=== PATIENT | female | born 1995 | race Two or more races ===

== ENCOUNTER 2024-03-17 10:56 | Inpatient (IN) | payer MEDICAID ==
[~2024-03-17] VITALS: Ht 165.1 cm; Wt 92.6 kg
[2024-03-17 11:48] LABS: Basophils # (auto) 0 10 ^3/uL (0-0.2); Basophils % (auto) 0.7 % (0.0-2.0); Eosinophils # (auto) 0.1 10 ^3/uL (0-0.8); Eosinophils % (auto) 1.6 % (0.0-7.0); Hematocrit 38.6 % (36.0-46.0); Lymphocytes # (auto) 1.5 10 ^3/uL (0.4-5.4); Lymphocytes % (auto) 29.2 % (10.0-50.0); Mean Corpuscular Hemoglobin 29.3 pg (28.0-32.0); Mean Corpuscular Hgb Conc. 33.6 g/dL (32.0-36.0); Mean Corpuscular Volume 87.2 fL (80.0-100.0); Monocytes # (auto) 0.3 10 ^3/uL (0-1.3); Monocytes % (auto) 5.7 % (0.0-12.0); Neutrophils # (auto) 3.2 10 ^3/uL (1.6-8.6); Neutrophils % (auto) 62.8 % (37.0-80.0); Nucleated Red Blood Cells % 0.1 %; Red Blood Cells 4.43 10^6/uL (4.0-5.20); Red Cell Distribution Width 13.4 % (11.8-14.3); White Blood Cell 5.1 10^3/uL (4.4-10.8)
[2024-03-17 11:49] LABS: Urine Bacteria None Seen /hpf (None Seen)
[2024-03-17 12:08] LABS: Urine Blood Negative /uL (Negative); Urine Clarity Clear (Clear); Urine Color Light-Yellow (Yellow); Urine Mucus FEW (None Seen); Urine Protein, UAD Negative (Negative); Urine Specific Gravity 1.011 (1.001-1.035); Urine Urobilinogen Normal (Negative); Urine WBC 1 /hpf (0 - 5)
[2024-03-17 12:10] LABS: Albumin 4.4 g/dL (3.2-4.8); Alkaline Phosphatase 66 U/L (46-116); Anion Gap 10 (5-15); Aspartate Aminotransferase < 8 U/L (13-40); BUN/Creatinine Ratio 9.7 (10.0-20.0); Bilirubin, Total 0.4 mg/dL (0.2-1.0); Blood Urea Nitrogen 7 mg/dL (9-23); Calcium 9.3 mg/dL (8.5-10.1); Carbon Dioxide 21 mmol/L (20-30); Chloride 108 mmol/L (98-107); Glucose 95 mg/dL (74-106); Potassium 3.8 mmol/L (3.5-5.1); Sodium 139 mmol/L (136-145)
[2024-03-17 12:13] LABS: Alanine Aminotransferase < 9 U/L (7-40)
[2024-03-17] MEDS: SODIUM CHLORIDE 0.9% 1,000 ML IV ONE (13:30)
[2024-03-17] MEDS: KETOROLAC TROMETH 30 MG/ML 1ML VIAL IV ONE (13:30)
[2024-03-17] MEDS: METOCLOPRAMIDE HCL 5MG/ml INJ 2ml VIAL IV ONE (13:30)
[2024-03-17 14:16] LABS: Magnesium 1.9 mg/dL (1.6-2.6)
[2024-03-17] MEDS ORDERED: SUMA25TA2 PO (15:39)
[2024-03-17] MEDS ORDERED: CIPR0.3S19 (15:39)
[2024-03-17] MEDS ORDERED: ACETAMINOPHEN 325 MG TAB PO PRN (15:45)
[2024-03-17] MEDS: PANTOPRAZOLE 40 MG/10 ML VIAL INJ IV ONE (15:45)
[2024-03-17 16:27] LABS: LDL Cholesterol 66 mg/dL (< 100); Triglycerides 54 mg/dL (< 150)
[2024-03-17 16:29] LABS: Cholesterol 134 mg/dL (< 200); HDL Cholesterol 54 mg/dL (40-59)
[2024-03-17 17:08] LABS: INR 1.02 (0.9-1.15); Partial Thromboplastin Time 32.5 SEC (24.5-34.5); Prothrombin Time 10.7 sec (9.3-11.8)
[2024-03-17 20:00] VITALS: PULSE 79; RESP 17; O2SAT 99
[2024-03-17 21:00] VITALS: BP 127/84; PULSE 98; RESP 19; TEMP 97.8; O2SAT 100
[2024-03-17] MEDS: METOCLOPRAMIDE HCL 5MG/ml INJ 2ml VIAL ONE (23:10)
[2024-03-17] MEDS: cefTRIAXone 1GM/50ML D5W 50 ML IV ONE ×2 (23:27→23:44)
[2024-03-17] MEDS: ONDANSETRON HCL 4 MG/2 ML VIAL IV PRN (23:31)
[2024-03-17] MEDS: MORPHINE SULFATE INJ 2 MG/ml SYRG IV PRN (23:40)
[2024-03-17] MEDS: SODIUM CHLORIDE 0.9% 1,000 ML IV SCH (23:41)
[2024-03-17] MEDS: ONDANSETRON HCL 4 MG/2 ML VIAL ONE (23:45)
[2024-03-17] MEDS: MORPHINE SULFATE INJ 2 MG/ml SYRG ONE (23:46)
[2024-03-18] VITALS (8 sets, daily range): BP systolic 96–118; BP diastolic 62–79; PULSE 79–98; RESP 16–19; TEMP 97.4–98; O2SAT 94–99
[2024-03-18 07:25] LABS: Basophils # (auto) 0 10 ^3/uL (0-0.2); Basophils % (auto) 0.3 % (0.0-2.0); Eosinophils # (auto) 0.1 10 ^3/uL (0-0.8); Eosinophils % (auto) 1.3 % (0.0-7.0); Hematocrit 38.6 % (36.0-46.0); Lymphocytes # (auto) 1.6 10 ^3/uL (0.4-5.4); Lymphocytes % (auto) 19.6 % (10.0-50.0); Mean Corpuscular Hemoglobin 29.5 pg (28.0-32.0); Mean Corpuscular Hgb Conc. 33.7 g/dL (32.0-36.0); Mean Corpuscular Volume 87.5 fL (80.0-100.0); Monocytes # (auto) 0.5 10 ^3/uL (0-1.3); Monocytes % (auto) 5.8 % (0.0-12.0); Red Blood Cells 4.41 10^6/uL (4.0-5.20); Red Cell Distribution Width 13.4 % (11.8-14.3); White Blood Cell 8.2 10^3/uL (4.4-10.8)
[2024-03-18 07:48] LABS: Albumin 4.4 g/dL (3.2-4.8); Alkaline Phosphatase 68 U/L (46-116); Anion Gap 10 (5-15); Aspartate Aminotransferase 12 U/L (13-40); Bilirubin, Total 0.5 mg/dL (0.2-1.0); Calcium 9.3 mg/dL (8.5-10.1); Carbon Dioxide 23 mmol/L (20-30); Chloride 106 mmol/L (98-107); Glucose 69 mg/dL (74-106); Potassium 3.9 mmol/L (3.5-5.1); Sodium 139 mmol/L (136-145); Total Protein 7.3 g/dL (5.7-8.2)
[2024-03-18 07:51] LABS: Alanine Aminotransferase < 9 U/L (7-40)
[2024-03-18] MEDS: cefTRIAXone 1GM/50ML D5W 50 ML IV ONE (07:51)
[2024-03-18] MEDS: MORPHINE SULFATE INJ 2 MG/ml SYRG ONE (07:52)
[2024-03-18] MEDS: cefTRIAXone 1GM/50ML D5W 50 ML IV SCH (07:53)
[2024-03-18] MEDS: PANTOPRAZOLE 40 MG/10 ML VIAL INJ IV SCH (07:54)
[2024-03-18 08:11] LABS: BUN/Creatinine Ratio 11.3 (10.0-20.0); Blood Urea Nitrogen 9 mg/dL (9-23)
[2024-03-18] MEDS ORDERED: SUMAtriptan SUCCINATE 25 MG TAB PO PRN (10:00)
[2024-03-18] MEDS ORDERED: MORPHINE SULFATE 4 MG/ML SYR/VIAL IV PRN (12:45)
[2024-03-18] MEDS: KETOROLAC TROMETH 30 MG/ML 1ML VIAL IV ONE (12:45)
[2024-03-18] MEDS ORDERED: MIDAZOLAM HCL 2MG/2ML 2ml VIAL (1mg/ml) IV PRN (12:45)
[2024-03-18] MEDS ORDERED: ePHEDrine SULFATE 50 MG/ML AMP IV PRN (12:45)
[2024-03-18] MEDS: ONDANSETRON HCL 4 MG/2 ML VIAL IV ONE (12:45)
[2024-03-18] MEDS ORDERED: LABETALOL HCL 5 MG/ML 4ML SYRINGE IV PRN (12:45)
[2024-03-18] MEDS: HYDROmorphone HCL 2 MG/ML VL/or syr IV PRN (14:10)
[2024-03-18] MEDS: SODIUM CHLORIDE 0.9% 1,000 ML IV SCH (15:57)
[2024-03-18] MEDS: metroNIDAZOLE 500MG/100ML 100 ML IV SCH (15:57)
[2024-03-18] MEDS: LIDOCAINE 1%-Mpf/Epinephrine 1:200,000 30ml VIAL ONE (18:31)
[2024-03-18] MEDS: MORPHINE SULFATE INJ 2 MG/ml SYRG IV PRN (20:15)
[2024-03-18] MEDS: ACETAMINOPHEN/CODEINE#3 (300/30mg) TAB PO PRN (21:17)
[2024-03-19 05:00] VITALS: BP 101/58; PULSE 78; RESP 16; TEMP 97.7; O2SAT 99
[2024-03-19 07:31] LABS: Basophils # (auto) 0 10 ^3/uL (0-0.2); Basophils % (auto) 0.1 % (0.0-2.0); Eosinophils # (auto) 0 10 ^3/uL (0-0.8); Hematocrit 37.2 % (36.0-46.0); Hemoglobin 12.2 g/dL (12.2-16.2); Lymphocytes # (auto) 0.6 10 ^3/uL (0.4-5.4); Lymphocytes % (auto) 6.4 % (10.0-50.0); Mean Corpuscular Hemoglobin 28.8 pg (28.0-32.0); Mean Corpuscular Hgb Conc. 32.8 g/dL (32.0-36.0); Mean Corpuscular Volume 87.9 fL (80.0-100.0); Monocytes # (auto) 0.4 10 ^3/uL (0-1.3); Monocytes % (auto) 4.5 % (0.0-12.0); Red Blood Cells 4.23 10^6/uL (4.0-5.20); Red Cell Distribution Width 12.9 % (11.8-14.3)
[2024-03-19 07:46] LABS: Albumin 3.9 g/dL (3.2-4.8); Alkaline Phosphatase 61 U/L (46-116); Anion Gap 9 (5-15); Aspartate Aminotransferase 13 U/L (13-40); BUN/Creatinine Ratio 10.3 (10.0-20.0); Blood Urea Nitrogen 7 mg/dL (9-23); Calcium 8.8 mg/dL (8.5-10.1); Carbon Dioxide 19 mmol/L (20-30); Chloride 108 mmol/L (98-107); Glucose 90 mg/dL (74-106); Sodium 136 mmol/L (136-145)
[2024-03-19 07:47] LABS: Bilirubin, Total 0.3 mg/dL (0.2-1.0); Total Protein 6.6 g/dL (5.7-8.2)
[2024-03-19 07:52] LABS: Alanine Aminotransferase < 9 U/L (7-40)
[2024-03-19 08:00] VITALS: PULSE 98; RESP 16; O2SAT 97
[2024-03-19 13:00] VITALS: BP 103/70; PULSE 89; RESP 18; TEMP 97.6; O2SAT 98
[2024-03-19 17:00] VITALS: BP 112/73; PULSE 94; RESP 18; TEMP 98.1; O2SAT 97
[2024-03-19 20:00] VITALS: O2SAT 97
[2024-03-19 21:00] VITALS: BP 109/78; PULSE 93; RESP 17; TEMP 97.5; O2SAT 99
[2024-03-19] MEDS: DOCUSATE ORAL LIQUID 100 MG/10 ML UD PO SCH (21:09)
[2024-03-20 01:00] VITALS: BP 109/76; PULSE 88; RESP 16; TEMP 98.1; O2SAT 95
[2024-03-20 07:48] LABS: Basophils # (auto) 0 10 ^3/uL (0-0.2); Basophils % (auto) 0.3 % (0.0-2.0); Eosinophils # (auto) 0 10 ^3/uL (0-0.8); Eosinophils % (auto) 0.3 % (0.0-7.0); Hematocrit 37.3 % (36.0-46.0); Hemoglobin 12.3 g/dL (12.2-16.2); Lymphocytes # (auto) 0.8 10 ^3/uL (0.4-5.4); Lymphocytes % (auto) 17.6 % (10.0-50.0); Mean Corpuscular Hemoglobin 29.6 pg (28.0-32.0); Mean Corpuscular Hgb Conc. 33.1 g/dL (32.0-36.0); Mean Corpuscular Volume 89.6 fL (80.0-100.0); Monocytes # (auto) 0.4 10 ^3/uL (0-1.3); Monocytes % (auto) 7.7 % (0.0-12.0); Neutrophils # (auto) 3.4 10 ^3/uL (1.6-8.6); Neutrophils % (auto) 74.1 % (37.0-80.0); Nucleated Red Blood Cells % 0.1 %; Red Blood Cells 4.16 10^6/uL (4.0-5.20); Red Cell Distribution Width 13.7 % (11.8-14.3); White Blood Cell 4.6 10^3/uL (4.4-10.8)
[2024-03-20 08:10] LABS: Alkaline Phosphatase 55 U/L (46-116); Anion Gap 8 (5-15); Blood Urea Nitrogen 6 mg/dL (9-23); Calcium 8.5 mg/dL (8.5-10.1); Carbon Dioxide 22 mmol/L (20-30); Chloride 110 mmol/L (98-107); Glucose 75 mg/dL (74-106); Potassium 3.6 mmol/L (3.5-5.1); Sodium 140 mmol/L (136-145)
[2024-03-20 08:11] LABS: Albumin 3.8 g/dL (3.2-4.8); Aspartate Aminotransferase 17 U/L (13-40); Bilirubin, Total 0.3 mg/dL (0.2-1.0); Total Protein 6.3 g/dL (5.7-8.2)
[2024-03-20 08:18] VITALS: O2SAT 98
[2024-03-20 08:27] LABS: Alanine Aminotransferase < 9 U/L (7-40)
[2024-03-20] MEDS ORDERED: MORPHINE SULFATE INJ 2 MG/ml SYRG IV PRN (08:45)
[2024-03-20 09:00] VITALS: BP 120/82; PULSE 105; RESP 18; TEMP 99.4; O2SAT 96
[2024-03-20] MEDS ORDERED: TRAM50TA2 PO (09:00)
[2024-03-20] MEDS ORDERED: MET500T PO (09:05)
[2024-03-20] MEDS: DOCUSATE SOD 100 MG CAP PO SCH (09:41)
[2024-03-20 12:47] VITALS: BP 109/78; PULSE 67; RESP 18; TEMP 97.8; O2SAT 92
== END 2024-03-20 16:25 | disposition home or self-care (01) | DRG 234 ==
LOC: ER 10:56 → WEST WING 15:38 → ER 15:38 → OVERFLOW 15:38 → WEST WING 18:01
PROVIDERS: ADMIT Internal Medicine; ATTEND Internal Medicine
PROC: 0DTJ4ZZ Resection of Appendix, Percutaneous Endoscopic Approach (ICD-10-PCS; principal; 2024-03-18 12:19)
DX: K35.80 Unspecified acute appendicitis (principal)
CPT/HCPCS: 36415; 71046; 74176; 80053; 80061; 81001; 83690; 83735; 84443; 84702; 85025; 85610; 85730; 96365; 96375; C9113; G0378; J1885; J2405; J3490

== ENCOUNTER 2024-08-05 11:54 | Inpatient (IN) | payer MEDICAID ==
[~2024-08-05] VITALS: Ht 162.6 cm; Wt 83.0 kg
[~2024-08-05 11:54] MED LIST: CIPR0.3S19; SUMA25TA2 PO; TRAM50TA2 PO
[2024-08-05 14:43] LABS: Urine Bacteria FEW /hpf (None Seen); Urine Blood Negative /uL (Negative); Urine Color Yellow (Yellow); Urine Mucus FEW (None Seen); Urine Protein, UAD 2+ (Negative); Urine Specific Gravity 1.026 (1.001-1.035); Urine Urobilinogen Normal (Negative); Urine WBC 7 /hpf (0 - 5)
[2024-08-05 14:44] LABS: Urine Clarity Hazy (Clear)
[2024-08-05 14:57] LABS: Basophils # (auto) 0.1 10 ^3/uL (0-0.2); Basophils % (auto) 0.6 % (0.0-2.0); Eosinophils # (auto) 0.1 10 ^3/uL (0-0.8); Eosinophils % (auto) 1.4 % (0.0-7.0); Hematocrit 39.9 % (36.0-46.0); Hemoglobin 13.6 g/dL (12.2-16.2); Lymphocytes # (auto) 1.6 10 ^3/uL (0.4-5.4); Lymphocytes % (auto) 16.7 % (10.0-50.0); Mean Corpuscular Hgb Conc. 34.1 g/dL (32.0-36.0); Monocytes # (auto) 0.5 10 ^3/uL (0-1.3); Monocytes % (auto) 4.9 % (0.0-12.0); Neutrophils # (auto) 7.3 10 ^3/uL (1.6-8.6); Neutrophils % (auto) 76.4 % (37.0-80.0); Nucleated Red Blood Cells % 0.1 %; Platelet Count (auto) 293 10^3/uL (140-450); Red Blood Cells 4.53 10^6/uL (4.0-5.20); Red Cell Distribution Width 13.3 % (11.8-14.3); White Blood Cell 9.6 10^3/uL (4.4-10.8)
[2024-08-05 15:14] LABS: INR 1.06 (0.9-1.15); Prothrombin Time 11.2 sec (9.3-11.8)
[2024-08-05 15:18] LABS: Alanine Aminotransferase 14 U/L (7-40); Albumin 4.5 g/dL (3.2-4.8); Alkaline Phosphatase 53 U/L (46-116); Anion Gap 4 (5-15); Aspartate Aminotransferase 8 U/L (13-40); BUN/Creatinine Ratio 7.1 (10.0-20.0); Blood Urea Nitrogen 6 mg/dL (9-23); Calcium 9.2 mg/dL (8.7-10.4); Carbon Dioxide 29 mmol/L (20-30); Chloride 106 mmol/L (98-107); Glucose 99 mg/dL (74-106); Potassium 3.6 mmol/L (3.5-5.1); Sodium 139 mmol/L (136-145); Total Protein 7.1 g/dL (5.7-8.2)
[2024-08-05 15:38] LABS: Bilirubin, Total 0.5 mg/dL (0.2-1.0)
[2024-08-05] MEDS: cefTRIAXone 1GM/50ML D5W 50 ML IV ONE ×2 (15:50→15:51)
[2024-08-05 15:55] LABS: Lipase 31 U/L (12-53)
[2024-08-05] MEDS: SODIUM CHLORIDE 0.9% 1,000 ML IV ONE (16:15)
[2024-08-05] MEDS: IOHEXOL 300 MG/ML 100ML BOTTLE IJ ONE (16:44)
[2024-08-05] MEDS ORDERED: DOCUSATE SOD 100 MG CAP PO PRN (18:30)
[2024-08-05] MEDS ORDERED: HYDROmorphone HCL 2 MG/ML VL/or syr IV PRN (18:30)
[2024-08-05] MEDS: PANTOPRAZOLE 40 MG/10 ML VIAL INJ IV ONE (18:42)
[2024-08-05] MEDS: PANTOPRAZOLE 40 MG/10 ML VIAL INJ IV SCH (18:45)
[2024-08-05 19:12] LABS: Erythrocyte Sedimentation Rate 4 mm/hr (0-20)
[2024-08-05] MEDS: D5W/LACTATED RINGERS 1,000 ML IV ONE (19:48)
[2024-08-05] MEDS: metroNIDAZOLE 500MG/100ML 100 ML IV SCH (19:54)
[2024-08-05] MEDS: HYDROcodone-ACET 5/325MG TAB PO PRN (22:00)
[2024-08-06] MEDS: ACETAMINOPHEN 325 MG TAB PO PRN (03:28)
[2024-08-06 03:36] LABS: Basophils # (auto) 0 10 ^3/uL (0-0.2); Basophils % (auto) 0.5 % (0.0-2.0); Eosinophils # (auto) 0.2 10 ^3/uL (0-0.8); Eosinophils % (auto) 1.9 % (0.0-7.0); Hematocrit 35.9 % (36.0-46.0); Hemoglobin 12.5 g/dL (12.2-16.2); Lymphocytes # (auto) 1.9 10 ^3/uL (0.4-5.4); Lymphocytes % (auto) 21.3 % (10.0-50.0); Mean Corpuscular Hemoglobin 30.7 pg (28.0-32.0); Mean Corpuscular Hgb Conc. 34.7 g/dL (32.0-36.0); Mean Corpuscular Volume 88.7 fL (80.0-100.0); Monocytes # (auto) 0.5 10 ^3/uL (0-1.3); Monocytes % (auto) 5.8 % (0.0-12.0); Neutrophils # (auto) 6.3 10 ^3/uL (1.6-8.6); Neutrophils % (auto) 70.5 % (37.0-80.0); Platelet Count (auto) 257 10^3/uL (140-450); Red Blood Cells 4.05 10^6/uL (4.0-5.20); Red Cell Distribution Width 13.2 % (11.8-14.3); White Blood Cell 8.9 10^3/uL (4.4-10.8)
[2024-08-06 03:50] LABS: Albumin 4.1 g/dL (3.2-4.8); Alkaline Phosphatase 46 U/L (46-116); Anion Gap 5 (5-15); Aspartate Aminotransferase < 8 U/L (13-40); Calcium 8.7 mg/dL (8.7-10.4); Carbon Dioxide 27 mmol/L (20-30); Chloride 109 mmol/L (98-107); Glucose 88 mg/dL (74-106); Magnesium 1.9 mg/dL (1.6-2.6); Potassium 3.4 mmol/L (3.5-5.1); Sodium 141 mmol/L (136-145)
[2024-08-06 03:51] LABS: Bilirubin, Total 0.4 mg/dL (0.2-1.0); Total Protein 6.5 g/dL (5.7-8.2)
[2024-08-06 03:52] LABS: Alanine Aminotransferase < 9 U/L (7-40); Blood Urea Nitrogen < 5 mg/dL (9-23)
[2024-08-06] MEDS: ONDANSETRON HCL 4 MG/2 ML VIAL IV PRN (07:23)
[2024-08-06 08:27] VITALS: PULSE 90; RESP 16; O2SAT 99
[2024-08-06] MEDS: POTASSIUM CHLORIDE 40 MEQ, LIDOCAINE 1% (LOCAL ANESTH.) 4 ML in SODIUM CHL 0.9% 250 ML IV ONE (09:57)
[2024-08-06] MEDS: ENOXAPARIN SOD 40 MG/0.4 ML SYRINGE SC SCH (10:21)
[2024-08-06] MEDS: cefTRIAXone 1GM/50ML D5W 50 ML IV SCH (10:22)
[2024-08-06] MEDS: SODIUM CHLORIDE 0.9% 1,000 ML IV SCH (11:55)
[2024-08-06] MEDS: MAGNESIUM SULFATE 1GM/100ML 100 ML IV ONE (12:47)
[2024-08-06 16:45] VITALS: BP 108/72; PULSE 82; RESP 16; TEMP 98; O2SAT 98
[2024-08-06 17:00] VITALS: BP 113/76; PULSE 90; RESP 16; TEMP 97.9; O2SAT 100
[2024-08-06 17:18] VITALS: PULSE 82; RESP 16; O2SAT 98
[2024-08-06 20:00] VITALS: O2SAT 100
[2024-08-06 20:16] LABS: COVID19 ANTIGEN SOFIA FIA NEGATIVE (NEGATIVE)
[2024-08-06 21:00] VITALS: BP 104/72; PULSE 86; RESP 17; TEMP 97.2; O2SAT 100
[2024-08-07] VITALS (8 sets, daily range): BP systolic 101–124; BP diastolic 64–89; PULSE 81–99; RESP 16–20; TEMP 97.2–98.2; O2SAT 92–100
[2024-08-07 05:36] LABS: Basophils # (auto) 0 10 ^3/uL (0-0.2); Basophils % (auto) 0.6 % (0.0-2.0); Eosinophils # (auto) 0.1 10 ^3/uL (0-0.8); Eosinophils % (auto) 3.5 % (0.0-7.0); Hematocrit 35.9 % (36.0-46.0); Hemoglobin 12.2 g/dL (12.2-16.2); Lymphocytes # (auto) 1.1 10 ^3/uL (0.4-5.4); Lymphocytes % (auto) 27.6 % (10.0-50.0); Mean Corpuscular Hemoglobin 30.1 pg (28.0-32.0); Mean Corpuscular Hgb Conc. 33.9 g/dL (32.0-36.0); Mean Corpuscular Volume 88.8 fL (80.0-100.0); Monocytes # (auto) 0.2 10 ^3/uL (0-1.3); Neutrophils # (auto) 2.4 10 ^3/uL (1.6-8.6); Neutrophils % (auto) 62.3 % (37.0-80.0); Nucleated Red Blood Cells % 0.1 %; Platelet Count (auto) 237 10^3/uL (140-450); Red Blood Cells 4.05 10^6/uL (4.0-5.20); White Blood Cell 3.9 10^3/uL (4.4-10.8)
[2024-08-07 05:47] LABS: Chloride 111 mmol/L (98-107); Potassium 4.3 mmol/L (3.5-5.1); Sodium 141 mmol/L (136-145)
[2024-08-07 05:48] LABS: Anion Gap 4 (5-15); Carbon Dioxide 26 mmol/L (20-30)
[2024-08-07 05:49] LABS: Calcium 8.8 mg/dL (8.7-10.4)
[2024-08-07 05:54] LABS: Glucose 75 mg/dL (74-106); Magnesium 1.9 mg/dL (1.6-2.6)
[2024-08-07 05:59] LABS: BUN/Creatinine Ratio 7.1 (10.0-20.0); Blood Urea Nitrogen < 5 mg/dL (9-23)
[2024-08-07] MEDS: MAGNESIUM OXIDE 400 MG TAB PO ONE (12:01)
[2024-08-08 01:00] VITALS: BP 100/68; PULSE 92; RESP 17; TEMP 98.7; O2SAT 98
[2024-08-08 05:00] VITALS: BP 102/63; PULSE 87; RESP 16; TEMP 98.3; O2SAT 97
[2024-08-08 06:12] LABS: Basophils # (auto) 0 10 ^3/uL (0-0.2); Basophils % (auto) 0.6 % (0.0-2.0); Eosinophils # (auto) 0.2 10 ^3/uL (0-0.8); Eosinophils % (auto) 4.1 % (0.0-7.0); Hematocrit 35.2 % (36.0-46.0); Hemoglobin 12.5 g/dL (12.2-16.2); Lymphocytes # (auto) 1.2 10 ^3/uL (0.4-5.4); Lymphocytes % (auto) 30.5 % (10.0-50.0); Mean Corpuscular Hemoglobin 31.2 pg (28.0-32.0); Mean Corpuscular Hgb Conc. 35.7 g/dL (32.0-36.0); Mean Corpuscular Volume 87.5 fL (80.0-100.0); Monocytes # (auto) 0.3 10 ^3/uL (0-1.3); Monocytes % (auto) 6.4 % (0.0-12.0); Neutrophils # (auto) 2.4 10 ^3/uL (1.6-8.6); Neutrophils % (auto) 58.4 % (37.0-80.0); Platelet Count (auto) 272 10^3/uL (140-450); Red Blood Cells 4.02 10^6/uL (4.0-5.20)
[2024-08-08 06:13] LABS: Calcium 8.9 mg/dL (8.7-10.4); Chloride 108 mmol/L (98-107); Potassium 3.5 mmol/L (3.5-5.1); Sodium 141 mmol/L (136-145)
[2024-08-08 06:14] LABS: Anion Gap 8 (5-15); Carbon Dioxide 25 mmol/L (20-30)
[2024-08-08 06:19] LABS: Glucose 96 mg/dL (74-106)
[2024-08-08 06:20] LABS: BUN/Creatinine Ratio 6.7 (10.0-20.0); Blood Urea Nitrogen < 5 mg/dL (9-23)
[2024-08-08 08:10] VITALS: O2SAT 92
[2024-08-08 09:21] VITALS: BP 108/69; PULSE 98; RESP 17; TEMP 98.7; O2SAT 99
[2024-08-08] MEDS ORDERED: LEVO500T91 PO (10:24)
[2024-08-08] MEDS ORDERED: MET500T PO (10:24)
[2024-08-08 13:29] VITALS: BP 107/73; PULSE 98; RESP 17; TEMP 97.8; O2SAT 97
[2024-08-08 17:12] VITALS: BP 114/69; PULSE 98; RESP 18; TEMP 97.9; O2SAT 98
== END 2024-08-08 17:30 | disposition home or self-care (01) | DRG 249 ==
LOC: ER 11:54 → OVERFLOW 18:22 → EAST 08-06 16:21
PROVIDERS: ADMIT Internal Medicine; ATTEND Emergency Medicine
DX: K52.9 Noninfective gastroenteritis and colitis, unspecified (principal); E66.9 Obesity, unspecified; G43.909 Migraine, unspecified, not intractable, without status migrainosus; Z20.822 Contact with and (suspected) exposure to COVID-19; E87.6 Hypokalemia; Z68.31 Body mass index [BMI] 31.0-31.9, adult
CPT/HCPCS: 36415; 74177; 80048; 80053; 81001; 82270; 83605; 83690; 83735; 84702; 85025; 85048; 85610; 85652; 85730; 86141; 86850; 86900; 86901; 87040; 87177; 87426; G0378; J2001; J2405; J2470; J3490